=== PATIENT | male | born 1950 | race Caucasian/White ===

== ENCOUNTER 2020-02-07 05:50 | Outpatient (CLI) | payer BC, OTHER ==
[2020-02-07 17:21] LABS: SARS-CoV-2 MS2 Positive; SARS-CoV-2 N Gene Negative; SARS-CoV-2 S Gene Negative; SARS-CoV-2 orf1ab Negative
== END 2020-02-07 05:51 | disposition home or self-care (01) ==
LOC: ERS 05:50
PROVIDERS: ATTEND Otolaryngology Plastic Surgery within the Head & Neck
DX: Z01.812 Encounter for preprocedural laboratory examination (principal); Z11.59 Encounter for screening for other viral diseases; R13.10 Dysphagia, unspecified
CPT/HCPCS: 87635; U0003

== ENCOUNTER 2020-02-10 10:21 | Outpatient (CLI) | payer BC ==
--- NOTE | 2020-02-10 11:11 | RAD ---
Modified barium swallow HISTORY: Dysphagia. Parkinson's disease. FINDINGS: Exam was performed in conjunction with speech pathology with multiple consistencies. Video review is available and demonstrates early spill of contrast with all consistencies. Flash penetration with all consistencies. No aspiration evident. Moderate residue within the valleculae. Good clearance upon secondary swallowi ng. The esophagus below the level of the hypopharynx was not evaluated. No evidence of obstruction. Fluoroscopy time 1.1 minutes. Please see separate detailed report from speech pathology.
== END 2020-02-10 10:22 | disposition home or self-care (01) ==
LOC: RAD 10:21
PROVIDERS: ATTEND Otolaryngology Plastic Surgery within the Head & Neck
DX: I69.891 Dysphagia following other cerebrovascular disease (principal); R13.10 Dysphagia, unspecified; G20 Parkinson's disease
CPT/HCPCS: 74230

== ENCOUNTER 2020-07-10 09:20 | Outpatient (CLI) | payer BC ==
--- NOTE | 2020-07-10 09:47 | RAD ---
XR Chest Pa Lat STANDARD History: Dyspnea Comparison: None. Findings: Lungs are clear. No pneumothorax or effusion. Cardiac silhouette and mediastinal contours a re within normal limits. Old right rib fracture. Impression: No acute intrathoracic abnormality.
== END 2020-07-10 09:21 | disposition home or self-care (01) ==
LOC: BICRAD 09:20
PROVIDERS: ATTEND Internal Medicine Critical Care Medicine
DX: R06.00 Dyspnea, unspecified (principal)
CPT/HCPCS: 71046